=== PATIENT | female | born 1965 | race African-American/Black ===

== ENCOUNTER → 2016-04-02 | Outpatient (CLI) | payer OTHER ==
[~2016-04-02] MED LIST: CIPRO 500MG TA500 MG PO; LISINOPRIL2.5 MG PO; METFORMIN500 MG PO
[2016-04-02 08:14] LABS: BUN 15 mg/dL (7-18)
[2016-04-02 08:18] LABS: GFR (ESTIMATED) 59 ML/MIN (59-)
== END ==
LOC: LAB 07:02
PROVIDERS: Family Medicine
DX: M54.16 Radiculopathy, lumbar region (principal); Z98.890 Other specified postprocedural states

== ENCOUNTER → 2016-04-05 | Outpatient (CLI) | payer OTHER ==
--- NOTE | 2016-04-07 07:35 | RADIOLOGY REPORT PS360 ---
MRI-L-SPINE W/WO , MRI-3D RENDERING/MYELOGRAM ORDERING PHYSICIAN : Ahsan Busby MD PATIENT AGE: 50 years GENDER: Female INDICATION: LUMBAR RADICULOPATHY, CHRONIC, S/P LUMBAR DISCECTOMY Back pain right leg pain. Right calf pain constant. Right leg feels heavy with walking. Hernia leg. Previous discectomy 3 years ago. TECHNIQUE: Precontrast Multiplanar FLAIR, T1, T2 weighted images along with axial diffusion/ADC imaging performed on 1.5 T. Siemens, MRI. Postcontrast imaging [id number] mL ProHance T1-weighted images axial & coronal plane performed COMPARISON: No previous studies FINDINGS Large patient . The vertebral bodies reveal no compression fracture nor discrete lesion. L5/S1.. Mild discogenic reactive endplate changes about this narrowed degenerated disc.. Diffuse Disc bulge with additional generous central disc bulge. Which abuts and mildly effaces the anterior aspect of thecal sac at midline. . There is CSF filling the left nerve root but the right S1 nerve root sleeve does not fill at this level. I suspect there is been a laminectomy & discectomy, right of midline.. There is postcontrast enhancement most evident at midline and just to the right of midline with discectomy was most likely performed. This is associated with mild protruding disc contour but likely reflects epidural fibrosis.. There is less enhancement as we follow this disc protrusion appearance towards the entry of the right foramen sagittal image 6. Still I suspect majority of this defect is due to epidural fibrosis given that there is some enhancement here. However more Difficult to exclude a small recurrent disc protrusion here at the entry of the right foramen.If right S1 radicular symptoms present or progress patient may want want to follow up with neurosurgery for their input There is some irregularity of posterior right lamina likely reflecting the laminectomy. Hypertrophic, facet changes bilaterally most evident to the right. The combination of features yields moderate bilateral foraminal encroachment L4/5. Disc height maintained with slight loss of disc hydration Moderate Central disc bulge which does moderately efface the thecal sac at midline but does not significantly lateralize. No disc herniation or disc extrusion. However the central bulge along with the posterior element hypertrophy does yield mild spinal stenosis at this level... Only mild foraminal encroachment bilaterally L3/4. Disc intact L2/3 disc intact L1/2 disc intact. T12/L1 disc intact minor facet hypertrophy T11/12 disc intact. There are some hypertrophic facet changes which slightly indents the posterior thecal sac at T 11/12 as well as T10-11 3-D MR myelogram image set shows shows a lack of filling of the right S1 nerve root associated with the features noted described above. Also slight indentation upon the thecal sac is seen at L4/5 from the disc bulge. IMPRESSION: 1.... L4/5. Generous central disc bulge effaces thecal sac. Mild Facet hypertrophy. Mild central canal stenosis. 2.... L5/S1: previous laminectomy discectomy at L5/S1. -Enhancing epidural fibrosis is most pronounced at midline & just to the right of midline along posterior disc margin.-This is seen associated with with prominent bulging disc contour this region -The L5/S1 disc contour becomes more focally pronounced at right foramen. There is less enhancement here but continue to favor mainly viewing postsurgical disc changes and enhancing fibrosis. However it is More difficult to exclude a small recurrent disc protrusion here at entry right foramen with this appearance (Also note lack of filling exiting nerve root sleeve on 3-D myelogram image set at this level) -Facet arthropathy bilateral 3.... Other observations: T11/12 Facet hypertrophy noted posteriorly, which indent and narrow posterior thecal sac at this level
== END ==
LOC: RAD 10:52
DX: M54.16 Radiculopathy, lumbar region (principal); Z98.890 Other specified postprocedural states
CPT/HCPCS: A9576

== ENCOUNTER → 2017-01-14 | Outpatient (CLI) | payer OTHER ==
[~2017-01-14] MED LIST changes: +ATENOLOL50 M1 PO; +ATORVASTATIN CA40 MG PO; +AUGMENTIN 875-1 EACH PO; +CLARITIN 10MG T10 MG PO; +CORTISPORIN15 GM SL; +FARXIGA10 MG PO; +FLONASE 50 MCG16 GM; +GLIPIZIDE ER10 M1 PO; +HYDROCHLOROTHIA1 TAB PO; +KEFLEX 500MG.500 MG PO; +METFORMIN 500M500 M1 PO; +PREMARIN 0.3MG0.3 MG; +VICTOZA6 MG/ML
== END ==
LOC: RAD 16:30
DX: Z12.31 Encounter for screening mammogram for malignant neoplasm of breast (principal); N62 Hypertrophy of breast
CPT/HCPCS: G0202